=== PATIENT | female | born 1965 | race Caucasian/White ===

== ENCOUNTER → 2020-05-25 13:18 | Outpatient (BNVA) | payer BC, SELFPAY | PROVIDERS: Visit Provider Urology ==

== ENCOUNTER → 2021-07-04 10:21 | Outpatient (BNVA) | payer BC, SELFPAY | PROVIDERS: PCP Internal Medicine ==

== ENCOUNTER 2022-04-24 13:43 | Outpatient (REF) | payer BC, SELFPAY ==
--- NOTE | ~2022-04-24 | US_ITS ---
EXAMINATION: US RETROPERITONEAL LIMITED (RENAL ONLY) CLINICAL INFORMATION: Kidney stone. COMPARISON: None TECHNIQUE: Real-time imaging of the kidneys. FINDINGS: RIGHT KIDNEY: 9.4 x 3.6 x 4.6 cm (SAG x AP x TRV). The kidney is normal in size, contour, and echogenicity. Renal cortical thickness is normal. No calculi or focal parenchymal lesions. No hydronephrosis. LEFT KIDNEY: 10.3 x 4.3 x 4.5 cm (SAG x AP x TRV). The kidney is normal in size, contour, and echogenicity. Renal cortical thickness is normal. No calculi or focal parenchymal lesions. No hydronephrosis. Mild lower pole caliectasis similar to previous exams. US/US renal BI IMPRESSION: No stone seen. Mild left lower pole caliectasis similar to previous exams.
== END 2022-04-24 13:44 | disposition home or self-care (01) ==
LOC: HO.HMGCX 13:43
PROVIDERS: PCP Internal Medicine
DX: N20.0 Calculus of kidney (principal)
CPT/HCPCS: 76775

== ENCOUNTER 2022-07-04 09:26 | Outpatient (REF) | payer BC, SELFPAY ==
[2022-07-11 12:09] LABS: Stone Source KIDNEY STONE
== END 2022-07-04 09:27 | disposition home or self-care (01) ==
LOC: HO.LNP 09:26
PROVIDERS: PCP Internal Medicine; Visit Provider Nurse Practitioner Family
DX: N20.0 Calculus of kidney (principal)
CPT/HCPCS: 82365; 88300

== ENCOUNTER 2022-07-04 10:46 | Outpatient (REF) | payer BC, SELFPAY ==
[2022-07-04 16:37] LABS: Urine Cytology See Pathology rpt
== END 2022-07-04 10:47 | disposition home or self-care (01) ==
LOC: HO.LAB 10:46
PROVIDERS: Visit Provider Nurse Practitioner Family
DX: N20.0 Calculus of kidney (principal)
CPT/HCPCS: 88112

== ENCOUNTER 2023-07-02 09:50 | Outpatient (REF) | payer BC, SELFPAY ==
--- NOTE | ~2023-07-02 | US_ITS ---
EXAMINATION: US RETROPERITONEAL COMPLETE (RENAL) CLINICAL INFORMATION: Calculus of kidney. COMPARISON: Renal ultrasound 04/24/2022 and 06/12/2021. X-ray abdomen 10/19/2017. TECHNIQUE: Real-time imaging of the kidneys and bladder. FINDINGS: RIGHT KIDNEY: 9.5 x 3.3 x 4.9 cm (SAG x AP x TRV). The kidney is normal in size, contour, and echogenicity. Renal cortical thickness is normal. No calculi or focal parenchymal lesions. No hydronephrosis. LEFT KIDNEY: 10.3 x 4.3 x 4.7 cm (SAG x AP x TRV). The kidney is normal in size, contour, and echogenicity. Renal cortical thickness is normal. No focal parenchymal lesions or hydronephrosis. 4 mm nonobstructing mid pole renal stone, new from prior. Similar lower pole caliectasis BLADDER: Well distended and normal. Bilateral ureteral jets are demonstrated. Prevoid bladder volume is 230 mL. Postvoid bladder volume is 16 mL. US/US retroperitoneal comp IMPRESSION: 4 mm nonobstructing left mid pole renal stone, new from prior. Similar left lower pole caliectasis without makayla hydronephrosis.
== END 2023-07-02 09:51 | disposition home or self-care (01) ==
LOC: HO.HMGCX 09:50
PROVIDERS: PCP Internal Medicine; Visit Provider Nurse Practitioner Family
DX: N20.0 Calculus of kidney (principal)
CPT/HCPCS: 76770

== ENCOUNTER 2023-07-07 09:32 | Outpatient (AMB) | payer BC, SELFPAY ==
--- NOTE | 2023-07-07 10:00 | MHC.OFFVIS ---
Intake Intake Visit Reasons: 1y/US(set) CONFIRMED Intake Note: Patient is present for ultrasound follow up/kidney stone Imagin07/02/23 Urology Medications: Vitamin B6 Blood Thinner: none Handbag Finisher Required: No Accompanied by: Self / Same As Patient Allergies cortisone Allergy (Unknown, Verified 07/07/23 21:13) unknown Medication List - Last Reconciled 07/07/23 by NICK Alvarado levothyroxine 100 mcg PO DAILY liothyronine 5 mcg PO DAILY pyridoxine (vitamin B6) 50 mg PO BID sumatriptan succinate 0 mg PO valacyclovir 2,000 mg PO BID HPI HPI Comments History of Present Illness Details Brie is a pleasant 58 year old female patient of Dr. Mix. She has a past medical history of insomnia, hypothyroidism, and migraines. She presents to the office today for a follow up of her nephrolthiasis. When asked she reports to be doing and feeling well. Recent renal imaging results reviewed with the patient today. Bilateral kidneys with no lesions or hydronephrosis. Left kidney with 4 mm nonobstructing mid pole renal calculus. The bladder is well distended and normal. Bilateral ureteral jets are demonstrated. Pre void bladder volume is approximately 230 mL. Postvoid bladder volume is approximately 15 mL. When asked she currently denies any bothersome urinary issues or concerns. She has a longstanding history of nephrolithiasis in office urinalysis results reviewed with the patient today. She denies urinary urgency, urinary frequency, incontinence, dysuria, foul smelling urine, nocturia, hematuria, changes to urinary stream, flank pain, fever, and or chills. When asked she reports compliance with 50 mg of vitamin B6 daily. She otherwise offers no other issues or concerns at this time. [facility] Medical History Insomnia Hypothyroid Migraines Review of Systems Const All systems reviewed & are unremarkable except as noted in HPI and below Reports as per HPI Eyes Reports no additional complaints ENT Reports no additional complaints Card Reports no additional complaints Resp Reports no additional complaints GI Reports no additional complaints Reports as per HPI Musc Reports no additional complaints Neuro Reports no additional complaints Psych Reports no additional complaints Endo Reports no additional complaints Marco/Lymph Reports no additional complaints Aller/Immun Reports no additional complaints Physical Exam Const General: cooperative, healthy appearing, comfortable, no acute distress, well developed, alert and awake Orientation/consciousness: patient oriented x3 Limitations: no limitations HEENT Head: Yes normal to inspection, Yes normocephalic and Yes atraumatic Ears: hearing grossly normal bilaterally Eyes General: appearance normal, both eyes and all related structures Neck Neck: Yes normal visual inspection and Yes trachea midline Chest Chest palpation & inspection: normal inspection of the chest Resp Effort & Inspection: normal respiratory effort and able to speak in complete sentences Cardio Rate: regular rate GI Inspection: Yes normal to inspection General: Yes no CVA tenderness Back/Spine/Pelvis Back: no CVA tenderness Skin General skin exam: no rashes or lesions noted Neuro General: patient oriented x3 Extrem General: Yes normal to inspection Psych Appearance: grossly normal and well kempt Mental Status: mental status grossly normal Speech and movement: Normal speech and movement present and Clear speech present Affect: normal affect Attitude: cooperative Thought process: Normal thought process present Thought content: Normal thought content present Insight: Good insight present (Psych) Judgement: Good judgement present (Psych) Results AMB Urinalysis, Automated UA Leukoctes 70 Osman/uL Last Edit by Ninua on 07/07/23 10:09 UA Nitrite Negative Last Edit by Ninua on 07/07/23 10:09 UA Urobilinogen 0.2 mg/dL Last Edit by Ninua on 07/07/23 10:09 UA Protein 15 mg/dL Last Edit by Ninua on 07/07/23 10:09 UA pH 5.5 Last Edit by Ninua on 07/07/23 10:09 UA Blood 25 Pilo/uL Last Edit by Ninua on 07/07/23 10:09 UA Specific [place] 1.020 Last Edit by Ninua on 07/07/23 10:09 UA Ketone Negative Last Edit by Ninua on 07/07/23 10:09 UA Bilirubin 1 mg/dL Last Edit by Ninua on 07/07/23 10:09 UA Glucose 0 mg/dL Last Edit by Ninua on 07/07/23 10:09 Results Reviewed Results Reviewed: Laboratory Last Values Urine pH (Auto) 5.5 07/07/23 10:08 Specific [place] (Auto) 1.020 07/07/23 10:08 Urine Protein (Auto) 15 mg/dL 07/07/23 10:08 Glucose (UA)(Auto) 0 mg/dL 07/07/23 10:08 Urine Ketones (Auto) Negative 07/07/23 10:08 Urine Blood (Auto) 25 Pilo/uL 07/07/23 10:08 Urine Nitrite (Auto) Negative 07/07/23 10:08 Urine Bilirubin (Auto) 1 mg/dL 07/07/23 10:08 Urine Urobilinogen (Auto) 0.2 mg/dL 07/07/23 10:08 Leukocyte Esterase (Auto) 70 Osman/uL 07/07/23 10:08 Date of Service: 07/02/23 EXAMINATION: US RETROPERITONEAL COMPLETE (RENAL) FINDINGS: RIGHT KIDNEY: 9.5 x 3.3 x 4.9 cm (SAG x AP x TRV). The kidney is normal in size, contour, and echogenicity. Renal cortical thickness is normal. No calculi or focal parenchymal lesions. No hydronephrosis. LEFT KIDNEY: 10.3 x 4.3 x 4.7 cm (SAG x AP x TRV). The kidney is normal in size, contour, and echogenicity. Renal cortical thickness is normal. No focal parenchymal lesions or hydronephrosis. 4 mm nonobstructing mid pole renal stone, new from prior. Similar lower pole caliectasis BLADDER: Well distended and normal. Bilateral ureteral jets are demonstrated. Prevoid bladder volume is 230 mL. Postvoid bladder volume is 16 mL. IMPRESSION: 4 mm nonobstructing left mid pole renal stone, new from prior. Similar left lower pole caliectasis without makayla hydronephrosis. Assessment & Plan Assessment & Plan (1) Nephrolithiasis: Code(s): N20.0 - Calculus of kidney Plan In office urinalysis results reviewed with the patient today; as noted above. Recent retroperitoneal ultrasound results reviewed with the patient today; as noted above. Discussed at length further treatment options of nephrolithiasis to include surgical intervention verses surveillance monitoring. Patient currently denies any bothersome urinary issues or concerns. She is happy with her current voiding parameters. Discussed further metabolic workup with 24 hour urine collection and labs. Discussed, educated, and stressed the importance of drinking plenty of water daily. Continue adding 1 oz of lemon juice to water daily. Continue vitamin B6 as prescribed. Follow-up in 3 months with labs and 24 hour urine to be completed prior; or sooner with any issues, concerns, and or questions. Orders: Orders AMB Urinalysis Automated Today Z13.9 - Encounter for screening, unspecified Vitamin D 25-OH Total Today N20.0 - Calculus of kidney Calcium Today N20.0 - Calculus of kidney URORISK Today N20.0 - Calculus of kidney Uric Acid Today N20.0 - Calculus of kidney Phosphorus Today N20.0 - Calculus of kidney Magnesium Today N20.0 - Calculus of kidney Basic Metabolic Panel Today N20.0 - Calculus of kidney Patient Instructions: The patient had an opportunity to ask questions regarding the treatment plan. All questions were answered. Physical exam, labs, and imaging were discussed and reviewed in detail. As well as risks, benefits, and discussion of treatment choices. No major barriers to understanding were identified. The patient expressed understanding and agreement with the above treatment plan. The patient was made aware they should contact our office by phone for worsening of their current condition, the appearance of new symptoms, or with any questions or concerns. Compliance is encouraged with any medications and follow up testing that is ordered. It is a privilege to be allowed the opportunity to participate in? your urological care.? Again, if you have any questions or concerns If you have any questions or concerns please do not hesitate to contact me. The office is [phone]. This note is constructed using voice recognition software. While every effort has been made to ensure accuracy pediatric neuropsychologist errors may have been included. Yours sincerely, NICK Alvarado Coding Level of Care Code Est Pt Level 3 (68878) Diagnoses Nephrolithiasis N20.0
== END 2023-07-07 10:47 | disposition home or self-care (01) ==
PROVIDERS: Visit Provider Nurse Practitioner Family
DX: N20.0 Calculus of kidney (principal)
CPT/HCPCS: 99213

== ENCOUNTER → 2023-07-07 09:32 | Outpatient (BNVA) | payer BC, SELFPAY | PROVIDERS: Visit Provider Nurse Practitioner Family | DX: N20.0 Calculus of kidney (principal) | CPT/HCPCS: 81003 ==

== ENCOUNTER 2023-09-29 14:21 | Outpatient (REF) | payer BC, SELFPAY ==
[2023-09-29 16:33] LABS: Anion Gap 14 (12-20); Blood Urea Nitrogen 16 mg/dL (9-16); Calcium 9.4 mg/dL (8.4-10.2); Carbon Dioxide 23 mmol/L (22-29); Chloride 106 mmol/L (96-108); Estimated Glomerular Filt Rate 59; Glucose Random 87 mg/dL (60-115); Magnesium 2.3 mg/dL (1.6-2.6); Phosphorus 3.4 mg/dL (2.7-4.5); Potassium 4.4 mmol/L (3.3-5.1); Sodium 139 mmol/L (135-145); Uric Acid 4.9 mg/dL (2.4-5.7)
[2023-09-29 16:40] LABS: Vitamin D 25-OH Total 24.9 ng/mL (>30)
== END 2023-09-29 14:22 | disposition home or self-care (01) ==
LOC: HO.HMGCLDS 14:21
PROVIDERS: PCP Internal Medicine; Visit Provider Nurse Practitioner Family
DX: N20.0 Calculus of kidney (principal)
CPT/HCPCS: 36415; 80048; 82306; 83735; 84100; 84550

== ENCOUNTER 2023-10-07 13:38 | Outpatient (AMB) | payer BC, SELFPAY ==
--- NOTE | 2023-10-07 13:45 | A.OFFVIS_ITS ---
Intake Visit Reasons: 3m/labs/litholink Intake Note: Patient presents for follow up on: kidney stone, Litholink, and Labs Urology Medications: Vitamin B6 Blood Thinner: none Mobile Device Developer Required: No Accompanied by: Self / Same As Patient Allergies cortisone Allergy (Unknown, Verified 10/07/23 14:13) unknown Medication List - Last Reconciled 10/07/23 by NICK Alvarado levothyroxine 100 mcg PO DAILY liothyronine 5 mcg PO DAILY pyridoxine (vitamin B6) 50 mg PO BID sumatriptan succinate 0 mg PO valacyclovir 2,000 mg PO BID HPI Comments Details: Brie is a pleasant 58 year old female patient of Dr. Mix. She has a past medical history of insomnia, hypothyroidism, and migraines. She presents to the office today for a follow up of her nephrolthiasis. When asked she report s to be doing and feeling well. Recent 24 hour urine collection and labs reviewed with the patient today. Patient with low calcium oxalate, low urine citrate, adequate volume at 2.3 L. discussed borderline low urine pH. Discussed adding 1 oz of lemon juice to water daily. She reports typically drinking about 80 oz of water daily. She has noted intermittent episodes of left-sided flank pain however there infrequent and not bothersome. She otherwise denies any bothersome urinary issues or concerns. Previous renal ultrasound 06/27 noted 4 mm nonobstructing mid pole left renal stone. No right-sided nephrolithiasis. No lesions or hydronephrosis. She denies urinary urgency, urinary frequency, incontinence, dysuria, foul smelling urine, nocturia, hematuria, changes to urinary stream, flank pain, fever, and or chills. When asked she reports compliance with 50 mg of vitamin B6 daily. She otherwise offers no other issues or concerns at this time. 09/24 sodium 139, potassium 4.4, chloride 106, carbon dioxide 23, BUN 16, creatinine 0.97, uric acid 4.9, calcium 9.4, phosphorus 3.4, magnesium 2.3, vitamin- D24.9. [facility] Medical History Insomnia Hypothyroid Migraines Review of Systems Const All systems reviewed & are unremarkable except as noted in HPI and below Reports as per HPI Eyes Reports no additional complaints ENT Reports no additional complaints Card Reports no additional complaints Resp Reports no additional complaints GI Reports no additional complaints Reports as per HPI Musc Reports no additional complaints Neuro Reports no additional complaints Psych Reports no additional complaints Endo Reports no additional complaints Marco/Lymph Reports no additional complaints Aller/Immun Reports no additional complaints Physical Exam Const General: cooperative, healthy appearing, comfortable, no acute distress, well d eveloped, alert and awake Nutritional Appearance: overweight Orientation/consciousness: patient oriented x3 Limitations: no limitations HEENT Head: Yes normal to inspection, Yes normocephalic and Yes atraumatic Ears: hearing grossly normal bilaterally Eyes General: appearance normal, both eyes and all related structures Neck Neck: Yes normal visual inspection and Yes trachea midline Chest Chest palpation & inspection: normal inspection of the chest Resp Effort & Inspection: normal respiratory effort and able to speak in complete sentences Cardio Rate: regular rate GI Inspection: Yes normal to inspection General: Yes no CVA tenderness Back/Spine/Pelvis Back: no CVA tenderness Skin General skin exam: no rashes or lesions noted Neuro General: patient oriented x3 Extrem General: Yes normal to inspection Psych Appearance: grossly normal and well kempt Mental Status: mental status grossly normal Speech and movement: Normal speech and movement present and Clear speech present Affect: normal affect Attitude: cooperative Thought process: Normal thought process present Thought content: Normal thought content present Insight: Fair insight present (Psych) Judgement: Fair judgement present (Psych) Results AMB Urinalysis, Automated UA Leukoctes 15 Osman/uL Last Edit by Socialinus on 10/07/23 14:00 UA Nitrite Negative Last Edit by Socialinus on 10/07/23 14:00 UA Urobilinogen 0.2 mg/dL Last Edit by Socialinus on 10/07/23 14:00 UA Protein 0 mg/dL Last Edit by Socialinus on 10/07/23 14:00 UA pH 6.0 Last Edit by Socialinus on 10/07/23 14:00 UA Blood 10 Pilo/uL Last Edit by Socialinus on 10/07/23 14:00 UA Specific [place] 1.005 Last Edit by Socialinus on 10/07/23 14:00 UA Ketone Negative Last Edit by Socialinus on 10/07/23 14:00 UA Bilirubin 0 mg/dL Last Edit by Inocente Cardenas on 10/07/23 14:00 UA Glucose 0 mg/dL Last Edit by Inocente Cardenas on 10/07/23 14:00 Results Reviewed Results Reviewed: Laboratory Last Values Urine pH (Auto) 6.0 10/07/23 13:48 Specific [place] (Auto) 1.005 10/07/23 13:48 Urine Protein (Auto) 0 mg/dL 10/07/23 13:48 Glucose (UA)(Auto) 0 mg/dL 10/07/23 13:48 Urine Ketones (Auto) Negative 10/07/23 13:48 Urine Blood (Auto) 10 Pilo/uL 10/07/23 13:48 Urine Nitrite (Auto) Negative 10/07/23 13:48 Urine Bilirubin (Auto) 0 mg/dL 10/07/23 13:48 Urine Urobilinogen (Auto) 0.2 mg/dL 10/07/23 13:48 Leukocyte Esterase (Auto) 15 Osman/uL 10/07/23 13:48 Assessment & Plan Assessment & Plan (1) Nephrolithiasis: Code(s): N20.0 - Calculus of kidney Category: Medical Plan In office urinalysis results reviewed with the patient today; as noted above. Recent 24 hour urine collection and labs reviewed with the patient today; as noted above. Patient currently denies any bothersome urinary issues or concerns. She is happy with her current voiding parameters. Discussed, educated, and stressed the importance of continuing to drink plenty of water daily. Discussed adding 1 oz of lemon juice to water daily. Continue vitamin B6 as prescribed. Follow-up in 6 months with imaging to be completed prior; or sooner with any issues, concerns, and or questions. Orders: Orders US renal BI 6 Months N20.0 - Calculus of kidney AMB Urinalysis Automated Today Z13.9 - Encounter for screening, unspecified Patient Instructions: The patient had an opportunity to ask questions regarding the treatment plan. All questions were answered. Physical exam, labs, and imaging were discussed and reviewed in detail. As well as risks, benefits, and discussion of treatment choices. No major barriers to understanding were identified. The patient expressed understanding and agreement with the above treatment plan. The patient was made aware they should contact our office by phone for worsening of their current condition, the appearance of new symptoms, or with any questions or concerns. Compliance is encouraged with any medications and follow up testing that is ordered. It is a privilege to be allowed the opportunity to participate in? your urological care.? Again, if you have any questions or concerns If you have any questions or concerns please do not hesitate to contact me. The office is [phone]. This note is constructed using voice recognition software. While every effort has been made to ensure accuracy environmental sustainability manager errors may have been included. Yours sincerely, NCIK Alvarado Coding Level of Care Code Est Pt Level 3 (03006) Diagnoses Nephrolithiasis N20.0
== END 2023-10-07 14:14 | disposition home or self-care (01) ==
PROVIDERS: PCP Internal Medicine; Visit Provider Nurse Practitioner Family
DX: Z13.9 Encounter for screening, unspecified (principal); N20.0 Calculus of kidney
CPT/HCPCS: 99213

== ENCOUNTER → 2023-10-07 13:38 | Outpatient (BNVA) | payer BC, SELFPAY | PROVIDERS: PCP Internal Medicine; Visit Provider Nurse Practitioner Family | DX: N20.0 Calculus of kidney (principal) | CPT/HCPCS: 81003 ==

== ENCOUNTER 2024-03-28 12:56 | Outpatient (REF) | payer BC, SELFPAY | END 2024-03-28 12:57 | disposition home or self-care (01) | LOC: HO.HMGCX 12:56 | PROVIDERS: PCP Physician Assistant; Visit Provider Nurse Practitioner Family | DX: N20.0 Calculus of kidney (principal) | CPT/HCPCS: 76775 ==

== ENCOUNTER 2024-04-04 13:22 | Outpatient (AMB) | payer BC, SELFPAY ==
--- NOTE | 2024-04-04 13:25 | A.OFFVIS_ITS ---
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 Mix. She has a past medical history of insomnia, hypothyroidism, and migraines. She presents to the office today for a follow up of her nephrolthiasis. When asked she reports to be doing and feeling well. She discusses following up with her PCP in his recently started fosfomax as she has recently had a bone scan. She also reports following up with PCP and starting Wegovy 4 months ago and has lost approximately 22 lb. Recent renal imaging results reviewed with the patient today...... She discusses continuing to drink plenty of water daily and adding 1 oz of lemon juice to water daily. When asked she denies any bothersome urinary issues or concerns. She denies urinary urgency, urinary frequency, incontinence, dysuria, foul smelling urine, nocturia, hematuria, changes to urinary stream, flank pain, fever, and or chills. When asked she reports compliance with 50 mg of vitamin B6 daily. She otherwise offers no other issues or concerns at this time. [facility] Medical History Insomnia Hypothyroid Migraines Review of Systems Const All systems reviewed & are unremarkable except as noted in HPI and below Reports as per HPI Eyes Reports no additional complaints ENT Reports no additional complaints Card Reports no additional complaints Resp Reports no additional complaints GI Reports no additional complaints Reports as per HPI Musc Reports no additional complaints Neuro Reports no additional complaints Psych Reports no additional complaints Endo Reports no additional complaints Marco/Lymph Reports no additional complaints Aller/Immun Reports no additional complaints Physical Exam Const General: cooperative, healthy appearing, comfortable, no acute distress, well developed, alert and awake Nutritional Appearance: overweight Orientation/consciousness: patient oriented x3 Limitations: no limitations HEENT Head: Yes normal to inspection, Yes normocephalic and Yes atraumatic Ears: hearing grossly normal bilaterally Eyes General: appearance normal, both eyes and all related structures Neck Neck: Yes normal visual inspection and Yes trachea midline Chest Chest palpation & inspection: normal inspection of the chest Resp Effort & Inspection: normal respiratory effort and able to speak in complete sentences Cardio Rate: regular rate GI Inspection: Yes normal to inspection General: Yes no CVA tenderness Back/Spine/Pelvis Back: no CVA tenderness Skin General skin exam: no rashes or lesions noted Neuro General: patient oriented x3 Extrem General: Yes normal to inspection Psych Appearance: grossly normal and well kempt Mental Status: mental status grossly normal Speech and movement: Normal speech and movement present and Clear speech present Affect: normal affect Attitude: cooperative Thought process: Normal thought process present Thought content: Normal thought content present Insight: Fair insight present (Psych) Judgement: Fair judgement present (Psych) Results AMB Urinalysis, Automated UA Leukoctes 0 Osman/uL Last Edit by GEOVANNA Kirkpatrick on 04/04/24 13:37 UA Nitrite Negative Last Edit by GEOVANNA Kirkpatrick on 04/04/24 13:37 UA Urobilinogen 0.2 mg/dL Last Edit by GEOVANNA Kirkpatrick on 04/04/24 13:3 7 UA Protein 15 mg/dL Last Edit by GEOVANNA Kirkpatrick on 04/04/24 13:37 UA pH 5.5 Last Edit by GEOVANNA Kirkpatrick on 04/04/24 13:37 UA Blood 0 Pilo/uL Last Edit by GEOVANNA Kirkpatrick on 04/04/24 13:37 UA Specific Zillah 1.030 Last Edit by GEOVANNA Kirkpatrick on 04/04/24 13: 37 UA Ketone Negative Last Edit by GEOVANNA Kirkpatrick on 04/04/24 13:37 UA Bilirubin 0 mg/dL Last Edit by GEOVANNA Kirkpatrick on 04/04/24 13:37 UA Glucose 0 mg/dL Last Edit by GEOVANNA Kirkpatrick on 04/04/24 13:37 Results Reviewed Results Reviewed: Laboratory Last Values Urine pH (Auto) 5.5 04/04/24 13:37 Specific Zillah (Auto) 1.030 04/04/24 13:37 Urine Protein (Auto) 15 mg/dL 04/04/24 13:37 Glucose (UA)(Auto) 0 mg/dL 04/04/24 13:37 Urine Ketones (Auto) Negative 04/04/24 13:37 Urine Blood (Auto) 0 Pilo/uL 04/04/24 13:37 Urine Nitrite (Auto) Negative 04/04/24 13:37 Urine Bilirubin (Auto) 0 mg/dL 04/04/24 13:37 Urine Urobilinogen (Auto) 0.2 mg/dL 04/04/24 13:37 Leukocyte Esterase (Auto) 0 Osman/uL 04/04/24 13:37 Assessment & Plan Assessment & Plan (1) Nephrolithiasis: Code(s): N20.0 - Calculus of kidney Category: Medical Plan In office urinalysis results reviewed with the patient today; as noted above. Recent renal imaging results reviewed with the patient today; as noted above. Patient currently denies any bothersome urinary issues or concerns. She reports be happy with current voiding parameters. Continue vitamin B6 as discussed and prescribed. Continue adding 1 oz of lemon juice to water daily. Discussed, educated, and stressed the importance of adequate hydration relation to nephrolithiasis as well as overall health and well-being. Will obtain renal ultrasound in 6 months. Follow-up in 6 months with imaging to be completed prior; or sooner with any issues, concerns, and or questions. Orders: Orders AMB Urinalysis Automated Today Z13.9 - Encounter for screening, unspecified US renal BI 6 Months N20.0 - Calculus of kidney Patient Instructions: The patient had an opportunity to ask questions regarding the treatment plan. All questions were answered. Physical exam, labs, and imaging were discussed and reviewed in detail. As well as risks, benefits, and discussion of treatment choices. No major barriers to understanding were identified. The patient expressed understanding and agreement with the above treatment plan. The patient was made aware they should contact our office by phone for worsening of their current condition, the appearance of new symptoms, or with any questions or concerns. Compliance is encouraged with any medications and follow up testing that is ordered. It is a privilege to be allowed the opportunity to participate in? your urological care.? Again, if you have any questions or concerns If you have any questions or concerns please do not hesitate to contact me. The office is [phone]. This note is constructed using voice recognition software. While every effort has been made to ensure accuracy radiologic therapist errors may have been included. Yours sincerely, NICK Alvarado Coding Level of Care Code Est Pt Level 3 (30081) Diagnoses Nephrolithiasis N20.0
== END 2024-04-04 14:04 | disposition home or self-care (01) ==
PROVIDERS: PCP Internal Medicine; Visit Provider Nurse Practitioner Family
DX: Z13.9 Encounter for screening, unspecified (principal)

== ENCOUNTER → 2024-04-04 13:22 | Outpatient (BNVA) | payer BC, SELFPAY | PROVIDERS: PCP Internal Medicine; Visit Provider Nurse Practitioner Family | DX: N20.0 Calculus of kidney (principal) | CPT/HCPCS: 81003 ==

== ENCOUNTER 2024-09-23 13:59 | Outpatient (REF) | payer BC, SELFPAY ==
--- NOTE | ~2024-09-23 | US_ITS ---
EXAMINATION: Ultrasound renal bilaterally. CLINICAL INFORMATION: Calculus of the kidneys. COMPARISON: March 28, 2024. TECHNIQUE: Real-time ultrasound of the kidneys using grayscale and color Doppler technique. FINDINGS: Right kidney: 10 x 3 x 5 cm. Volume: 76 cc. Normal echotexture. Renal cortical thinning. No hydronephrosis. No gross solid or cystic lesion detected by the technologist. Left kidney: 11 x 4 x 5 cm. Volume: 125 cc. Normal echotexture. Renal cortical thinning. Mild prominent pelvicalyceal system/pelvicalyceal ectasia. No gross solid or cystic lesion detected by the technologist. US/US renal BI IMPRESSION: Mild pelvicalyceal ectasia, left kidney. Electronically signed by: Clifton Noyola MD 09/23/2024 02:27 PM EDT
--- OUTSIDE RECORDS SUMMARY | 2024-09-23 14:01 | XMS_ITS | Encounter Summary ---
Author Organization [facility] Address [address] [place] [address] Care Team Providers Care Refinery Operator Name Role Phone Candy Henderson DO Primary Care Pro vider Unavailable Deneen Mix MD Primary Care Provider [phone] Encounter Details Date Type Department Care Team Description 10/06/2014 Pt. Non Urgent Medical Question Adult Medicine [address] [address] [address] [address] Social History Tobacco Use Types Packs/Day Years Used Date Smoking Tobacco: Former Cigarettes 1 10 Q uit: 05/04/1990 Smokeless Tobacco: Never Comments:Quit in 1990, 1 pac k per day prior Alcohol Use Standard Drinks/Week Comments No 0.8 (1 standard drink = 0.6 oz p ure alcohol) Physical Activity Answer Date Recorded On average, how many days pe r week do you engage in moderate to strenuous exercise (like walking fast, running, jogging, dancing, swimming, biking, or other activities that cause a light or heavy sweat)? 0 days 06/07/2020 On average, how many minutes do you engage in exercise at this level? 0 min 06/07/2020 Sex Assigned at Date Recorded Not on file Job Start Date Occupation Industry Not on file Not on file Not on file documented as of this encounter Progress Notes * Yue Vasquez M.A. - 10/06/2014 4:25 PM EDTFrom: Brie Pacheco To: XAVIER Barraza Sent: 10/06/2014 4:09 PM EDT Subject: request I sent a fairly lengthy message about 5 min before this one ... not sure if you received it as whenI hit send it timed me out of my chart and I had to log back in. Just let me know if you didnt receive my request for referral and I will resend. Thank you :) (its not showing up in my send history) documented in this encounter Plan of Treatment Not on file documented as of this encounter Visit Diagnoses Not on filedocumented in this encounter Care Teams Refinery Operator Relationship Specialty Start Date End Date Candy Henderson DO PCP - General Internal Medicine 10/02/14 12/04/20 Deneen Mix MD [address] [place] [id number] PCP - General Internal Medicine 12/05/20 documented as of this encounter
== END 2024-09-23 14:00 | disposition home or self-care (01) ==
LOC: HO.HMGCX 13:59
PROVIDERS: PCP Physician Assistant; Visit Provider Nurse Practitioner Family
DX: N20.0 Calculus of kidney (principal)
CPT/HCPCS: 76775

== ENCOUNTER → 2024-09-23 14:00 | Outpatient (BNV) | payer BC, SELFPAY | PROVIDERS: PCP Physician Assistant; Visit Provider Radiology Diagnostic Radiology | DX: Q62.39 Other obstructive defects of renal pelvis and ureter (principal) | CPT/HCPCS: 76775 ==

== ENCOUNTER 2024-10-03 13:37 | Outpatient (AMB) | payer BC, SELFPAY ==
--- NOTE | 2024-10-03 13:43 | A.OFFVIS_ITS ---
Intake Visit Reasons: 6m/US(set) Intake Note: Patient presents today for follow up on: kidney stones and ultrasound results Imaging Completed: 09/23/24 Urology Medication:VITAMIN B6 Antibiotic Allergy:Cortisone Blood Thinner:NONE Power Superintendent Required: No Accompanied by: Self / Same As Patient Allergies cortisone Allergy (Unknown, Verified 10/03/24 14:02) unknown HPI Comments Details: Brie is a pleasant 59 year old female patient of Dr. Mix.She has a past medical history of insomnia, hypothyroidism, and migraines. She presents to the office today for a follow up of her nephrolthiasis. When asked she reports to be doing and feeling well. She denies having had any bothersome urinary issues or concerns since her last office visit here over a year ago. She reports to be drinking plenty of water daily and adding 1 oz of lemon juice to her water daily. She reports compliance with vitamin B6 as prescribed. Recent renal ultrasound results were reviewed with the patient today 09/25 bilateral kidneys are normal in echotexture. No gross solid or cystic lesions noted. No nephrolithiasis noted. Mild left pelvicalyceal ectasia. She continues to intentionally lose weight with Wegovy and feels this has been helpful in her health journey. When asked she denies any bothersome urinary issues or concerns. She denies urinary urgency, urinary frequency, incontinence, dysuria, foul smelling urine, nocturia, hematuria, changes to urinary stream, flank pain, fever, and or chills. In office urinalysis results reviewed with the patient to day. She otherwise offers no other issues or concerns at this time. [facility] Medical History Insomnia Hypothyroid Migraines Review of Systems Const All systems reviewed & are unremarkable except as noted in HPI and below Reports as per HPI Eyes Reports no additional complaints ENT Reports no additional complaints Card Reports no additional complaints Resp Reports no additional complaints GI Reports no additional complaints Reports as per HPI Musc Reports no additional complaints Neuro Reports no additional complaints Psych Reports no additional complaints Endo Reports no additional complaints Marco/Lymph Reports no additional complaints Aller/Immun Reports no additional complaints Physical Exam Const General: cooperative, healthy appearing, comfortable, no acute distress, well developed, alert and awake Nutritional Appearance: overweight Orientation/consciousness: patient oriented x3 Limitations: no limitations HEENT Head: Yes normal to inspection, Yes normocephalic and Yes atraumatic Ears: hearing grossly normal bilaterally Eyes General: appearance normal, both eyes and all related structures Neck Neck: Yes normal visual inspection and Yes trachea midline Chest Chest palpation & inspection: normal inspection of the chest Resp Effort & Inspection: normal respiratory effort and able to speak in complete sentences Cardio Rate: regular rate GI Inspection: Yes normal to inspection General: Yes no CVA tenderness Back/Spine/Pelvis Back: no CVA tenderness Skin General skin exam: no rashes or lesions noted Neuro General: patient oriented x3 Extrem General: Yes normal to inspection Psych Appearance: grossly normal and well kempt Mental Status: mental status grossly normal Speech and movement: Normal speech and movement present and Clear speech present Affect: normal affect Attitude: cooperative Thought process: Normal thought process present Thought content: Normal thought content present Insight: Fair insight present (Psych) Judgement: Fair judgement present (Psych) Results AMB Urinalysis, Automated UA Leukoctes 15 Osman/uL Last Edit by Tito Tavarez on 10/03/24 14:00 UA Nitrite Negative Last Edit by Tito Tavarez on 10/03/24 14:00 UA Urobilinogen 3.5 mg/dL Last Edit by Tito Tavarez on 10/03/24 14:00 UA Protein 0 mg/dL Last Edit by Tito Tavarez on 10/03/24 14:00 UA pH 6.0 Last Edit by Tito Tavarez on 10/03/24 14:00 UA Blood 0 Pilo/uL Last Edit by Tito Tavarez on 10/03/24 14:00 UA Specific Homer 1.010 Last Edit by Tito Tavarez on 10/03/24 14:00 UA Ketone Negative Last Edit by Tito Tavarez on 10/03/24 14:00 UA Bilirubin 0 mg/dL Last Edit by Tito Tavarez on 10/03/24 14:00 UA Glucose 0 mg/dL Last Edit by Tito Tavarez on 10/03/24 14:00 Results Reviewed Results Reviewed: Laboratory Last Values Urine pH (Auto) 6.0 10/03/24 13:58 Specific Homer (Auto) 1.010 10/03/24 13:58 Urine Protein (Auto) 0 mg/dL 10/03/24 13:58 Glucose (UA)(Auto) 0 mg/dL 10/03/24 13:58 Urine Ketones (Auto) Negative 10/03/24 13:58 Urine Blood (Auto) 0 Pilo/uL 10/03/24 13:58 Urine Nitrite (Auto) Negative 10/03/24 13:58 Urine Bilirubin (Auto) 0 mg/dL 10/03/24 13:58 Urine Urobilinogen (Auto) 3.5 mg/dL 10/03/24 13:58 Leukocyte Esterase (Auto) 15 Osman/uL 10/03/24 13:58 Date of Service: 09/23/24 Procedure(s): US renal BI FINDINGS: Right kidney: 10 x 3 x 5 cm. Volume: 76 cc. Normal echotexture. Renal cortical thinning. No hydronephrosis. No gross solid or cystic lesion detected by the technologist. Left kidney: 11 x 4 x 5 cm. Volume: 125 cc. Normal echotexture. Renal cortical thinning. Mild prominent pelvicalyceal system/pelvicalyceal ectasia. No gross solid or cystic lesion detected by the technologist. IMPRESSION: Mild pelvicalyceal ectasia, left kidney. Assessment & Plan Assessment & Plan (1) Nephrolithiasis: Code(s): N20.0 - Calculus of kidney Category: Medical Plan In office urinalysis results reviewed with the patient today; as noted above. Recent renal imaging results reviewed with the patient today; as noted above. Continue vitamin B6 as discussed and prescribed. We discussed the importance of continuing with adequate hydration relation to nephrolithiasis as well as overall health and well-being. She currently denies any bothersome urinary issues or concerns. She reports be happy with current voiding parameters. Will continue with surveillance monitoring. Will obtain renal ultrasound in 1 year. Follow-up in 1 year with imaging to be completed prior; or sooner with any issues, concerns, and or questions. Orders: Orders US renal BI 1 Year N20.0 - Calculus of kidney AMB Urinalysis Automated Today Z13.9 - Encounter for screening, unspecified Patient Instructions: The patient had an opportunity to ask questions regarding the treatment plan. All questions were answered. Physical exam, labs, and imaging were discussed and reviewed in detail. As well as risks, benefits, and discussion of treatment choices. No major barriers to understanding were identified. The patient expressed understanding and agreement with the above treatment plan. The patient was made aware they should contact our office by phone for worsening of their current condition, the appearance of new symptoms, or with any questions or concerns. Compliance is encouraged with any medications and follow up testing that is ordered. It is a privilege to be allowed the opportunity to participate in? your urological care.? Again, if you have any questions or concerns If you have any questions or concerns please do not hesitate to contact me. The office is [phone]. This note is constructed using voice recognition software. While every effort has been made to ensure accuracy employee development specialist errors may have been included. Yours sincerely, NICK Alvarado Coding Level of Care Code Est Pt Level 3 (65946) Diagnoses Nephrolithiasis N20.0
== END 2024-10-03 14:20 | disposition home or self-care (01) ==
LOC: HO.HUSH 13:38
PROVIDERS: PCP Internal Medicine; Visit Provider Nurse Practitioner Family
DX: N20.0 Calculus of kidney (principal); Z13.9 Encounter for screening, unspecified
CPT/HCPCS: 99213

== ENCOUNTER → 2024-10-03 13:37 | Outpatient (BNVA) | payer BC, SELFPAY | PROVIDERS: PCP Internal Medicine; Visit Provider Nurse Practitioner Family | DX: N20.0 Calculus of kidney (principal); Z13.9 Encounter for screening, unspecified | CPT/HCPCS: 81003 ==